=== PATIENT | female | born 1980 | race American Indian/Alaskan Native ===

== ENCOUNTER 2016-05-06 13:06 | Emergency (ER) | payer MEDICAID, OTHER ==
[2016-05-06 13:06] VITALS: BMI 30.2
[2016-05-06 13:35] VITALS: BP 126/85; PULSE 87; RESP 18; TEMP 98.1; O2SAT 97
--- NOTE | 2016-05-06 14:51 | C.PDOC ---
History Of Present Illness Pt c/o left temporalis muscle twitches. She states it happens once every 2 weeks or so, but for the whole day. Time Seen by Provider: 05/06/16 14:22 Chief Complaint (Nursing): Medical Clearance History Per: Patient Onset/Duration Of Symptoms: Days (about 3 months), Intermittent Episodes Current Symptoms Are (Timing): Still Present Severity: Mild Additional History Per: Prior Records Past Medical History Reviewed: Historical Data, Nursing Documentation, Vital Signs Vital Signs: Last Vital Signs Temp 98.1 F 05/06/16 13:31 Pulse 87 05/06/16 13:31 Resp 18 05/06/16 13:31 BP 126/85 05/06/16 13:31 Pulse Ox 97 05/06/16 13:31 - Medical History PMH: Migraine - [facility] Procedures MONITORING NOS (08/01/14) REPAIR OB LACERATION NEC (08/01/14) Family History: States: Unknown Family Hx - Social History Hx Tobacco Use: No Hx Alcohol Use: No Hx Substance Use: No - Immunization History Hx Tetanus Toxoid Vaccination: No Hx Influenza Vaccination: No Hx Pneumococcal Vaccination: No Review Of Systems Except As Marked, All Systems Reviewed And Found Negative. Constitutional: Negative for: Fever, Weakness Eyes: Negative for: Pain, Vision Change ENT: Negative for: Ear Pain, Ear Discharge, Mouth Pain, Mouth Swelling, Throat Pain Cardiovascular: Negative for: Chest Pain, Palpitations Respiratory: Negative for: Shortness of Breath Gastrointestinal: Negative for: Vomiting, Abdominal Pain Musculoskeletal: Negative for: Neck Pain Skin: Negative for: Rash Neurological: Negative for: Weakness, Numbness, Seizures, Altered Mental Status , Headache, Dizziness Physical Exam - Physical Exam Appears: Non-toxic, No Acute Distress Skin: Normal Color, Warm, Dry, No Rash Head: Atraumatic, Normacephalic Eye(s): bilateral: Normal Inspection, PERRL, EOMI Ear(s): Bilateral: Normal Oral Mucosa: Moist, No Trismus Neck: Normal ROM, Supple Cardiovascular: Rhythm Regular Respiratory: Normal Breath Sounds, No Accessory Muscle Use Gastrointestinal/Abdominal: Soft, No Tenderness Extremity: Normal ROM Neurological/Psych: Oriented x3, Normal Speech, Normal Cognition, Normal Cranial Nerves, Normal Motor, Normal Sensation ED Course And Treatment O2 Sat by Pulse Oximetry: 97 Pulse Ox Interpretation: Normal Disposition Counseled Patient/Family Regarding: Diagnosis, Need For Followup, Rx Given - Disposition Referrals: Mahendra Najera MD [Staff Provider] - Disposition: HOME/ ROUTINE Disposition Time: 14:53 Condition: IMPROVED Additional Instructions: Follow up with your primary doctor and/or Neurologist for further evaluation and treatment. Return to the ER if you develop worsening of symptoms or if you have any other concerns. Prescriptions: Multivitamin with Minerals [One Daily Plus Minerals] 1 each PO DAILY #30 tablet Forms: General Discharge Instructions - Clinical Impression Clinical Impression: Muscle twitch
== END 2016-05-06 15:02 | disposition home or self-care (01) ==
LOC: C.ER 13:06
DX: R25.3 Fasciculation (principal)

== ENCOUNTER 2016-10-25 13:52 | Emergency (ER) | payer OTHER ==
[2016-10-25 13:52] VITALS: BMI 30.2
--- NOTE | 2016-10-25 15:16 | C.PDOC ---
History Of Present Illness 10/25/2016 Monserrat Hong is a 36 year old female, who presents to the ED complaining of a cough for the past week. Patient states she feels like there is a "knot" on her throat and the last three days became worse to the point of her having to throw up or drink water. Patient denies any fever, SOB, chest pain, rash or recent travels. Time Seen by Provider: 10/25/16 14:34 Chief Complaint (Nursing): Cough, Cold, Congestion History Per: Patient History/Exam Limitations: no limitations Onset/Duration Of Symptoms: Days (one week), Worse Since (3 days ago) Current Symptoms Are (Timing): Worse Associated Symptoms: Cough, Vomiting. denies: Fever Recent travel outside of the [place]: No Past Medical History Reviewed: Historical Data, Nursing Documentation, Vital Signs Vital Signs: Last Vital Signs Temp 98.3 F 10/25/16 17:04 Pulse 81 10/25/16 17:04 Resp 16 10/25/16 17:04 BP 96/65 L 10/25/16 17:04 Pulse Ox 97 10/25/16 17:04 - Medical History PMH: Migraine - [employer] Procedures MONITORING NOS (08/01/14) REPAIR OB LACERATION NEC (08/01/14) Family History: States: No Known Family Hx - Social History Hx Tobacco Use: No Hx Alcohol Use: No Hx Substance Use: No - Immunization History Hx Tetanus Toxoid Vaccination: No Hx Influenza Vaccination: No Hx Pneumococcal Vaccination: No Review Of Systems Except As Marked, All Systems Reviewed And Found Negative. Cardiovascular: Negative for: Chest Pain Respiratory: Positive for: Cough. Negative for: Shortness of Breath Gastrointestinal: Positive for: Vomiting Skin: Negative for: Rash Neurological: Negative for: Headache Physical Exam - Physical Exam Appears: Well, Non-toxic, No Acute Distress Skin: Normal Color Head: Atraumatic, Normacephalic Eye(s): bilateral: Normal Inspection Oral Mucosa: Moist Throat: Normal Neck: Normal Cardiovascular: Rhythm Regular, No Friction Rub, No Murmur Respiratory: Normal Breath Sounds, No Rales, No Rhonchi, No Wheezing Gastrointestinal/Abdominal: Normal Exam, Soft, No Tenderness Neurological/Psych: Oriented x3, Normal Speech, Normal Motor Gait: Steady ED Course And Treatment O2 Sat by Pulse Oximetry: 100 (room air) Pulse Ox Interpretation: Normal - Radiology CXR: Interpreted by Me CXR Interpretation: Yes: No Acute Disease. No: Infiltrates, Pnemothorax Medical Decision Making Medical Decision Makin10/25/2016 Plan: -- CXR -- Reassess and disposition Progress Notes: On re-exam, the patient reports the improvement of symptoms. Lungs are CTA, Lungs are CTA, Abdomen is soft, non-tender and patient is tolerating PO well. Patient is ambulatory in the ED with the steady gait. Follow up with the medical doctor within 1-2 days. Return if worsened. Disposition - Disposition Referrals: [facility] [Outside] Disposition: HOME/ ROUTINE Disposition Time: 16:52 Condition: GOOD Additional Instructions: Follow up with the medical doctor within 1-2 days without fail. return if worsened.d Prescriptions: Ibuprofen [Motrin] 600 mg PO TID #21 tab Loratadine [Claritin] 10 mg PO DAILY #10 tab predniSONE [Prednisone] 20 mg PO BID #10 tab Instructions: Acute Bronchitis (ED) Forms: [employer] (Citizen Of [place]) - Clinical Impression Clinical Impression: Bronchitis - Scribe Statement The provider has reviewed the documentation as recorded by the Scribe 10/25/2016 Scribe Attestation: Araceli Umana MD Scribe Attestation: All medical record entries made by the Scribe were at my direction and personally dictated by me. I have reviewed the chart and agree that the record accurately reflects my personal performance of the history, physical exam, medical decision making, and the department course for this patient. I have also personally directed, reviewed, and agree with the discharge instructions and disposition.
[2016-10-25 17:05] VITALS: BP 96/65; PULSE 81; RESP 16; TEMP 98.3
--- NOTE | 2016-10-25 17:11 | RAD ---
HISTORY: cough, x 4 weeks COMPARISON: No prior. TECHNIQUE: Chest PA and lateral FINDINGS: LUNGS: No active pulmonary disease. PLEURA: No significant pleural effusion identified. No pneumothorax apparent. CARDIOVASCULAR: Normal. OSSEOUS STRUCTURES: No significant abnormalities. VISUALIZED UPPER ABDOMEN: Normal. OTHER FINDINGS: None. IMPRESSION: No active disease. Concordant results with the preliminary interpretation rendered by the emergency department physician procedure.
[2016-10-31 00:13] VITALS: O2SAT 100
== END 2016-10-25 17:09 | disposition home or self-care (01) ==
LOC: C.ER 13:52
DX: J40 Bronchitis, not specified as acute or chronic (principal)

== ENCOUNTER 2017-06-29 11:08 | Emergency (ER) | payer OTHER ==
[2017-06-29 11:08] VITALS: BMI 30.2
[2017-06-29 11:18] VITALS: PULSE 81
[2017-06-29 12:46] LABS: HCG,QUALITATIVE URINE NEGATIVE (NEGATIVE)
[2017-06-29 12:57] LABS: SQUAMOUS EPITHIAL 2 /hpf (0-5); URINE BACTERIA RARE (<OCC); URINE BILIRUBIN NEGATIVE (NEGATIVE); URINE BLOOD 3+ (NEGATIVE); URINE CLARITY Clear (Clear); URINE COLOR Yellow (YELLOW); URINE GLUCOSE (UA) NORMAL (Normal); URINE LEUKOCYTE ESTERASE NEG Leu/uL (Negative); URINE PROTEIN NEGATIVE (NEGATIVE); URINE UROBILINOGEN NORMAL mg/dL (0.2-1.0)
--- NOTE | 2017-06-29 13:17 | C.PDOC ---
History Of Present Illness 37-year-old female presents to the emergency department with complaints of an episode of vaginal bleeding today. Patient states that this morning, she passed a large blood clot associated with pelvic cramping. Patient denies current , states her last menstrual period was in 01/01, which is when she had an IUD placed. She denies dysuria, nausea/vomiting, fever/chills, or any other associated symptoms. Time Seen by Provider: 06/29/17 11:38 Chief Complaint (Nursing): Female Genitourinary History Per: Patient History/Exam Limitations: no limitations Current Symptoms Are (Timing): Better Severity: Mild Quality Of Discomfort: Cramping Past Medical History Reviewed: Historical Data, Nursing Documentation, Vital Signs Vital Signs: Last Vital Signs Temp 98.7 F 06/29/17 13:25 Pulse 81 06/29/17 13:25 Resp 16 06/29/17 13:25 BP 109/73 06/29/17 13:25 Pulse Ox 99 06/29/17 17:32 - Medical History PMH: Migraine - [employer] Procedures MONITORING NOS (08/01/14) REPAIR OB LACERATION NEC (08/01/14) Family History: States: No Known Family Hx - Social History Hx Tobacco Use: No Hx Alcohol Use: No Hx Substance Use: No - Immunization History Hx Tetanus Toxoid Vaccination: No Hx Influenza Vaccination: No Hx Pneumococcal Vaccination: No Review Of Systems Constitutional: Negative for: Fever, Chills Cardiovascular: Negative for: Chest Pain Respiratory: Negative for: Shortness of Breath Gastrointestinal: Negative for: Nausea, Vomiting, Abdominal Pain, Diarrhea Genitourinary: Positive for: Vaginal Bleeding, Pelvic Pain. Negative for: Dysuria, Frequency, Incontinence, Hematuria, Vaginal Discharge, Rash Musculoskeletal: Negative for: Back Pain Neurological: Negative for: Weakness, Numbness Physical Exam - Physical Exam Appears: Well, Non-toxic, No Acute Distress Skin: Normal Color, Warm, Dry, No Rash Oral Mucosa: Moist Neck: Normal, Normal ROM Cardiovascular: Rhythm Regular Respiratory: Normal Breath Sounds, No Accessory Muscle Use, No Rales, No Rhonchi , No Wheezing Gastrointestinal/Abdominal: Normal Exam, Bowel Sounds, Soft, No Tenderness Back: Normal Inspection, No CVA Tenderness Pelvic: No Normal External Exam, No Normal Bimanual Exam, Vaginal Bleeding (in vault), No Vaginal Discharge, No Cervical Motion Tenderness, No Adnexal Tenderness, No Mass, Other (IUD string in cervix) Extremity: No Swelling Neurological/Psych: Oriented x3 ED Course And Treatment O2 Sat by Pulse Oximetry: 99 (RA) Pulse Ox Interpretation: Normal Progress Note: UA and Upreg ordered and reviewed. Patient has normal pelvic exam, scant blood in vault - likely due to irregular menses from hormonal IUD. She was instructed to follow up with shipping room supervisor within 1 week, and understands she should return to ED if symptoms worsen. Disposition Counseled Patient/Family Regarding: Studies Performed, Diagnosis, Need For Followup - Disposition Referrals: Dimas Ngo, TATIANA, PHYSICAL SCIENCE TEACHER [Advanced Practice Nurse] - Disposition: HOME/ ROUTINE Disposition Time: 13:15 Condition: STABLE Additional Instructions: FOLLOW UP WITH YOUR NEON SIGN ERECTOR WITHIN 1 WEEK RETURN TO ER IF SYMPTOMS WORSEN Instructions: Intrauterine Devices (IUD) Forms: [facility] (Japanese), General Discharge Instructions Print Language: TRISTANIAN - Clinical Impression Clinical Impression: Breakthrough bleeding associated with intrauterine device (IUD) - Scribe Statement The provider has reviewed the documentation as recorded by the Scribe (Liv Rouse) All medical record entries made by the Scribe were at my direction and personally dictated by me. I have reviewed the chart and agree that the record accurately reflects my personal performance of the history, physical exam, medical decision making, and the department course for this patient. I have also personally directed, reviewed, and agree with the discharge instructions and disposition.
[2017-06-29 13:26] VITALS: BP 109/73; RESP 16; TEMP 98.7
[2017-06-29 17:29] VITALS: O2SAT 99
== END 2017-06-29 13:27 | disposition home or self-care (01) ==
LOC: C.ER 11:08
DX: N93.9 Abnormal uterine and vaginal bleeding, unspecified (principal); Z97.5 Presence of (intrauterine) contraceptive device